=== PATIENT | female | born 1965 | race Caucasian/White ===

== ENCOUNTER 2018-07-01 16:23 | Outpatient (CLI) | payer OTHER ==
--- NOTE | 2018-07-01 16:45 | RAD ---
LEFT KNEE 07/01/18 Four views. INDICATION: Knee pain. Recent fall with injury. Mild degenerative change present. The joint spaces are preserved. Minimal spurring from the tibial sp agustina and patella. No fracture or acute osseous abnormality. No significant joint effusion. IMPRESSION: Mild degenerative change. No acute process. POS: [facility]
== END 2018-07-01 16:24 | disposition home or self-care (01) ==
LOC: SCSRAD 16:23
PROVIDERS: ATTEND Family Medicine
DX: M25.562 Pain in left knee (principal); M17.12 Unilateral primary osteoarthritis, left knee

== ENCOUNTER 2018-09-23 16:37 | Outpatient (CLI) | payer OTHER | END 2018-09-23 16:38 | disposition home or self-care (01) | LOC: CTENTCT 16:37 | PROVIDERS: ATTEND Otolaryngology Plastic Surgery within the Head & Neck | DX: J01.81 Other acute recurrent sinusitis (principal) ==